=== PATIENT | female | born 1950 | race Caucasian/White ===

== ENCOUNTER 2024-02-18 13:50 | Outpatient (CLI) | payer MEDICARE, SELFPAY ==
--- NOTE | ~2024-02-18 | MR_ITS ---
EXAMINATION: MR knee RT wo con DATE: 02/18/2024 14:53 INDICATION: Right knee pain. TECHNIQUE: Magnetic resonance imaging (MRI) of the right knee was performed without intravenous contr ast. Sequences included axial PD-weighted FS FSE, coronal PD-weighted FSE and PD-weighted FS FSE, sag ittal PD-weighted FSE, and sagittal T2-weighted FS FSE. COMPARISON: Right tibia and fibula radiographs 01/16/2016 FINDINGS: Medial compartment: There is a complex tear involving body and posterior horn of medial meniscus. There is full-thickness cartilage loss of femoral condyle involving the central articular surface with moderate subchondral edema-like marrow signal intensity. There is full-thickness cartilage loss of tibial condyle involvin g the central articular surface with mild subchondral edema-like marrow signal intensity. Osteophytes are noted. Lateral compartment: There is a complex tear of body of lateral meniscus. There is deep partial-thickness cartilage loss o f tibial condyle involving the posterior articular surface. There is shallow partial-thickness cartil age loss of femoral condyle. Osteophytes are noted. Patellofemoral compartment: There is full-thickness cartilage loss of patellar lateral facet, median ridge, and medial facet with cortical remodeling. There is full-thickness cartilage loss of lateral trochlea with cortical remode ling. Osteophytes are noted. Ligaments and tendons: The anterior and posterior cruciate ligaments are normal. There are changes of prior sprains of media l collateral ligament and fibular collateral ligament characterized by thickening and increased signa l intensity proximally. There is mild patellar tendinopathy. Fluid: There is a moderate-sized knee joint effusion. There is a large Hernandez cyst. There is mild prepatellar and superficial infrapatellar bursitis. IMPRESSION: 1. Severe chondrosis of medial and patellofemoral compartments and moderate chondrosis of lateral com partment. 2. Tears of medial and lateral menisci. 3. Moderate-sized knee joint effusion. 4. Large Hernandez's cyst. Reviewed, dictated and finalized at location A. EY AGENT IMPRESSION: 1. Severe chondrosis of medial and patellofemoral compartments and moderate cho ndrosis of lateral compartment. 2. Tears of medial and lateral menisci. 3. Moderate-sized knee joint effusion. 4. Large Hernandez's cyst.
== END 2024-02-18 13:51 | disposition home or self-care (01) ==
LOC: GOSHIMG 13:52
PROVIDERS: PCP Physician Assistant; Visit Provider Family Medicine Sports Medicine
DX: M25.461 Effusion, right knee (principal); M71.21 Synovial cyst of popliteal space [Baker], right knee; S83.241A Other tear of medial meniscus, current injury, right knee, initial encounter; S83.281A Other tear of lateral meniscus, current injury, right knee, initial encounter; X58.XXXA Exposure to other specified factors, initial encounter
CPT/HCPCS: 73721

== ENCOUNTER 2025-01-20 15:14 | Emergency (ER) | payer MEDICARE, SELFPAY ==
--- NOTE | ~2025-01-20 | XR_ITS ---
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 Findings: No acute fracture or malalignment. Arthroplasty intact Soft tissues unremarkable. Impression: No acute fracture or malalignment. Reviewed, dictated and finalized at location P. FILTER PRESS OPERATOR Impression: No acute fracture or malalignment.
[2025-01-20 15:20] VITALS: BP 146/85; PULSE 120; RESP 20; TEMP 36.7; O2SAT 98
--- NOTE | 2025-01-20 15:20 | ED_ITS ---
HPI - Extremity Injury (Lower) General Chief Complaint: Extremity Injury, Lower Stated Complaint: fall, right knee Source: patient, RN notes reviewed and old records reviewed Mode of arrival: ambulatory Limitations: no limitations History of Present Illness HPI Narrative: 74-year-old female presents to the [facility] with right knee pain, swelling, bruising and abrasion. Had a knee replacement done in June of 2024. States that she has been icing it and took [id number] medications. States that she tripped and fell. Did not hit head. No loss of consciousness. Treatments prior to arrival: cold therapy and NSAIDS Related Data Home Medications ?Medication ?Instructions ?Recorded ?Confirmed ?Last Taken ?Type amlodipine 2.5 mg tablet mg 01/20/25 Unknown History azelastine 137 mcg (0.1 %) nasal intranasal 01/20/25 Unknown History spray doxycycline hyclate 100 mg capsule mg 01/20/25 Unknow n History evolocumab 140 mg/mL subcutaneous mg subcut 01/20/25 Unknown History syringe (Repatha Syringe) famotidine 40 mg tablet mg 01/20/25 Unknown History fluticasone 250 mcg-salmeterol 50 inhalation 01/20/25 Unknown History mcg/dose blistr powdr for inhalation gabapentin 100 mg capsule mg 01/20/25 Unknown History gabapentin 300 mg capsule mg 01/20/25 Unknown History hydrochlorothiazide 25 mg tablet mg 01/20/25 Unknown History mesalamine 0.375 gram g PO 01/20/25 Unknown Histo ry capsule,extended release 24 hr (Apriso) metformin 500 mg tablet mg 01/20/25 Unknown History montelukast 10 mg tablet mg 01/20/25 Unknown History potassium chloride 20 mEq meq PO 01/20/25 Unknown His tory tablet,extended release(part/cryst) Allergies Allergy/AdvReac Type Severity Reaction Status Date / Time codeine Allergy Mild ABD PAIN Verified 01/20/25 15:24 iodine Allergy Mild WARM Verified 01/20/25 15:24 FEELING Sulfa (Sulfonamide Allergy Mild RASH Verified 01/20/25 15:24 Antibiotics) Review of Systems Review of Systems: All systems reviewed & are unremarkable except as noted in HPI and below Constitutional: Constitutional: Reports no additional constitutional complaints Cardiovascular: Cardiovascular: Denies chest pain Respiratory: Respiratory: Reports no additional respiratory complaints, Denies chest congestion, Denies cough and Denies dyspnea Musculoskeletal: Musculoskeletal: Reports as per HPI and Reports joint swelling Integumentary/Breasts: Skin/Breast: Reports system reviewed and no additional complaints, except as docu PMFSH Comments At the time of my signature, I reviewed and agree with the nursing past medical, surgical, social, and family history. There is no relevant family history pertinent to the patient complaint. Exam Const: General: cooperative, healthy appearing, comfortable, no acute distress, well developed, alert and well nourished Nutritional Appearance: well nourished Orientation/consciousness: patient oriented x3 Limitations: no limitations HENMT: Head: normal to inspection Eyes: General: appearance normal, both eyes and all related structures Alignment and Position: alignment normal Neck: Neck: normal visual inspection, full ROM, no lymphadenopathy and no meningeal signs Chest: Chest palpation & inspection: normal inspection of the chest Resp: Effort & Inspection: normal respiratory effort and able to speak in complete sentences Cardio: Rate: regular rate Skin: General skin exam: normal color and no rashes or lesions noted Other: abrasion anterior right knee Neuro: General: patient oriented x3, moves all extremities and no meningeal signs Cognition (Neuro): normal cognition Speech: normal speech Extrem: General: normal to inspection, full ROM and capillary refill normal Left lower extremity: knee Details: tenderness, swelling, normal ROM, abrasion and ecchymosis Psych: Appearance: grossly normal and well kempt Mental Status: mental status grossly normal Speech and movement: Normal speech and movement present and Clear speech present Affect: normal affect Attitude: cooperative Course Course Level of Care: Express Care Visit Vital Signs Vital signs: Vital Signs Temperature 98.1 F 01/20/25 15:20 Pulse Rate 120 H 01/20/25 15:20 Respiratory Rate 20 01/20/25 15:20 Blood Pressure 146/85 H 01/20/25 15:20 Pulse Oximetry 98 01/20/25 15:20 Oxygen Delivery Room Air 01/20/25 15:20 Temperature 98.1 F 01/20/25 15:20 Pulse Rate 120 H 01/20/25 15:20 Respiratory Rate 20 01/20/25 15:20 Blood Pressure 146/85 H 01/20/25 15:20 Pulse Oximetry 98 01/20/25 15:20 Oxygen Delivery Room Air 01/20/25 15:20 Reviewed MDM - Extremity Injury (Lower) MDM Narrative Medical decision making narrative: patient sitting in exam room. Patient is nontoxic, vitals stable. Patient presents knee pain post trip and fall. X-ray showed no acute findings. Patient has not orthopedic. Will follow up this week patient is appropriate for outpatient treatment with close follow-up Discharge instructions reviewed with patient, as well as provided in writing per nursing staff. The instructions also include specific and strict return/GO TO THE ER as well as f/u information. All questions have been answered, and the patient deny any further questions with discharge and discharge plan. Some parts of this dictation were generated by voice recognition software and may contain typographical and/or grammatical inaccuracies. Differential Diagnosis Differential diagnosis: Likely other ( knee contusion, fracture, sprain) Imaging Data Radiologist's impression: EXAMINATION: XR knee RT min 4V, 01/20/2025 15:26 SURGICAL RESIDENT HISTORY: pain and swelling, HX of replacement 06/30 COMPARISON: No comparisons available. Findings: No acute fracture or malalignment. Arthroplasty intact Soft tissues unremarkable. Impression: No acute fracture or malalignment. Critical Care Time Critical Care Time Critical Care Time: No Discharge Plan Discharge Clinical Impression: Pain and swelling of right knee, History of knee replacement, Abrasion of knee, Fall Patient Disposition: Home Condition: Stable Instructions: Antibiotic Form, Abrasion (ED), Swollen Joint (ED) Additional Instructions: today your blood pressure was 146/85. Please follow-up with primary care provider to have this rechecked within 2 weeks. Your Xray did not show a fracture Or malalignment Wear good supportive shoes at all times. Ice should be applied to help reduce swelling. It can be used for 20 to 30 minutes, every 2-3 hours while awake. Do not apply ice directly to your skin. wearing a knee support or an Artis wrap can help with the swelling and support the knee. You can alternate ibuprofen 600mg and Tylenol 650mg every 4 hours as needed for pain Follow-up with your orthopedic this week wash the abrasion twice daily with warm soapy water, pat dry and apply bacitracin, very small amount Please schedule a follow-up visit with your personal physician for further evaluation and treatment within 2 weeks especially if symptoms persist. For new or worsening symptoms go directly to the emergency room Patient Language: Bruneian Prescriptions: No Action fluticasone propion-salmeterol 250-50 mcg/dose blister with device INHALATION doxycycline hyclate 100 mg capsule famotidine 40 mg tablet amlodipine 2.5 mg tablet potassium chloride 20 mEq tablet,ER particles/crystals PO gabapentin 300 mg capsule montelukast 10 mg tablet hydrochlorothiazide 25 mg tablet gabapentin 100 mg capsule azelastine 137 mcg (0.1 %) spray,non-aerosol INTRANASAL mesalamine [Apriso] 0.375 gram capsule,extended release 24hr PO Repatha Syringe 140 mg/mL syringe SUBCUT metformin 500 mg tablet Follow-up/Referrals: Leah,[id number] Craft [Primary Care Provider, Unknown] - 2 Weeks Clinical Impression: History of knee replacement; Pain and swelling of right knee; Fall; Abrasion of knee Stand Alone Forms: Work/School Release IP Time of Disposition: 15:56
== END 2025-01-20 16:03 | disposition home or self-care (01) ==
PROVIDERS: Emergency Provider Nurse Practitioner; PCP Physician Assistant
DX: S80.211A Abrasion, right knee, initial encounter (principal); M79.89 Other specified soft tissue disorders; Z79.899 Other long term (current) drug therapy; W01.0XXA Fall on same level from slipping, tripping and stumbling without subsequent striking against object, initial encounter
CPT/HCPCS: 73564; 99203; G0463